=== PATIENT | female | born 1945 | race Caucasian/White ===

== ENCOUNTER 2017-06-02 11:19 | Outpatient (CLI) | payer MEDICARE ==
--- NOTE | 2017-06-02 12:40 | RAD ---
PA AND LATERAL CHEST: Indication: Fever. IMPRESSION: No acute cardiopulmonary abnormality. COMMENTS: Chronic lung changes are stable. Calcified granuloma of the right upper lobe is similar. Heart size and pulmonary vasculature is normal. There are vascular calcifications involving the aortic arch. POS: [facility]
== END 2017-06-02 11:20 | disposition home or self-care (01) ==
LOC: RAD-FRANK 11:19
PROVIDERS: ATTEND Nurse Practitioner Family
DX: R50.9 Fever, unspecified (principal)
CPT/HCPCS: 71020

== ENCOUNTER 2018-01-12 09:27 | Outpatient (CLI) | payer MEDICARE ==
--- NOTE | 2018-01-12 11:08 | RAD ---
PA AND LATERAL CHEST: History: Bronchitis. FINDINGS: Comparison made with exam of 06-10-17. The heart size is normal. The aorta is tortuous. The lungs are expanded without focal areas of consol idation, pneumothorax, or pleural effusions. There are degenerative changes in the spine. Calcified g ranuloma in the right upper lobe is redemonstrated. IMPRESSION: No radiographic evidence of acute cardiopulmonary process. POS: [facility]
== END 2018-01-12 09:28 | disposition home or self-care (01) ==
LOC: RAD-FRANK 09:27
PROVIDERS: ATTEND Nurse Practitioner Family
DX: J40 Bronchitis, not specified as acute or chronic (principal)
CPT/HCPCS: 71046

== ENCOUNTER 2018-11-03 12:56 | Outpatient (CLI) | payer MEDICARE ==
--- NOTE | 2018-11-03 13:45 | MMO ---
Bilateral MAMMO Bilat Screen [facility]. CLINICAL HISTORY: Patient is 72 years old and is seen for screening. The patient has no family history of breast cancer. The patient has no personal history of cancer. VIEWS: The views performed were: bilateral craniocaudal with tomosynthesis; bilateral mediolateral oblique; and bilateral mediolateral oblique with tomosynthesis. FILMS COMPARED: The present examination has been compared to a prior imaging study performed at [facility] on 02/13/2009. MAMMOGRAM FINDINGS: There are scattered fibroglandular densities. There are benign appearing calcifications seen in both breasts. There are no suspicious masses, calcifications or areas of architectural distortion. IMPRESSION: CALCIFICATIONS IN BOTH BREASTS ARE BENIGN. A ROUTINE FOLLOW-UP MAMMOGRAM IN 1 YEAR IS RECOMMENDED. THE RESULTS OF THIS EXAM WERE SENT TO THE PATIENT. ACR BI-RADS Category 2 - Benign finding MAMMOGRAPHY NOTE: 1. A negative mammogram report should not delay a biopsy if a dominant of clinically suspicious mass is present. 2. Approximately 10% to 15% of breast cancers are not detected by mammography. 3. Adenosis and dense breasts may obscure an underlying neoplasm.
--- NOTE | 2018-11-03 14:29 | BD ---
DEXA BONE SCAN: History: Age related osteoporosis. Lumbar Spine: BMD (g/cm2) L1 0.86 T-Score: -1.1 Z-Score: 1.0 L2 0.91 T-Score: -1.0 Z-Score: 1.3 L3 0.91 T-Score: -1.6 Z-Score: 0.9 L4 1.91 T-Score: -1.4 Z-Score: 1.1 L1-L4 0.90 T-Score: -1.3 Z-Score: 1.0 Findings are compatible with osteopenia. Femoral Neck: 0.64 T-Score: -1.9 Z-Score: 0.1 Total Femur: 0.94 T-Score: -0.1 Z-Score: 1.7 Findings compatible with osteopenia. The patient has a major osteoporotic fracture risk of 13% and hip fracture risk of 4.3% Impression: Osteopenia. The patient has a mild increased risk of osteoporotic fractures. POS: [facility]
== END 2018-11-03 12:57 | disposition home or self-care (01) ==
LOC: BICMAMMO 12:56
PROVIDERS: ATTEND Obstetrics & Gynecology
DX: Z12.31 Encounter for screening mammogram for malignant neoplasm of breast (principal); Z13.820 Encounter for screening for osteoporosis; M85.88 Other specified disorders of bone density and structure, other site; R92.1 Mammographic calcification found on diagnostic imaging of breast
CPT/HCPCS: 77063; 77067; 77080

== ENCOUNTER 2019-08-07 07:43 | Outpatient (CLI) | payer MEDICARE ==
--- NOTE | 2019-08-07 08:12 | RAD ---
TWO VIEWS CHEST: DATE: 08/07/2019. PROVIDED CLINICAL HISTORY: Cough. FINDINGS: Comparison 01/12/2018. Cardiac and mediastinal silhouette is within normal limits. Vascular calcific ation involves the aortic arch. Blunting of the left costophrenic angle is new with respect to the p rior examination, without evidence for freely layering pleural fluid on the lateral. Stable calcifie d granulomatous right suprahilar region. Question patchy airspace disease left lung base laterally. No evidence for pneumothorax. IMPRESSION: Left lateral basilar pleural-parenchymal opacity, new from prior. This may reflect airspace disease with adjacent non-freely layering pleural fluid. Followup is recommended. POS: [facility]
== END 2019-08-07 07:44 | disposition home or self-care (01) ==
LOC: RAD-FRANK 07:43
PROVIDERS: ATTEND Nurse Practitioner Family
DX: R05 Cough (principal); R91.8 Other nonspecific abnormal finding of lung field
CPT/HCPCS: 71046

== ENCOUNTER 2019-09-08 08:35 | Outpatient (CLI) | payer MEDICARE ==
--- NOTE | 2019-09-08 09:10 | RAD ---
PA AND LATERAL VIEWS CHEST: Date: 09/08/2019 HISTORY: Pleural effusion follow-up. COMPARISON: 08/07/2019. FINDINGS: The previously noted left lateral basilar pleural parenchymal opacity demonstrates interval improveme nt. The heart size is normal. The aorta is tortuous. The right lung is clear. There are degenerative changes in the spine. IMPRESSION: Interval improvement since 08/07/2019. Continued follow-up is recommended. POS: [facility]
== END 2019-09-08 08:36 | disposition home or self-care (01) ==
LOC: RAD-FRANK 08:35
PROVIDERS: ATTEND Nurse Practitioner Family
DX: J90 Pleural effusion, not elsewhere classified (principal)
CPT/HCPCS: 71046

== ENCOUNTER 2020-05-16 09:07 | Outpatient (CLI) | payer MEDICARE ==
--- NOTE | 2020-05-16 09:22 | RAD ---
XR Chest Pa Lat STANDARD HISTORY: COPD COMPARISON: 09/08/2019 FINDINGS: The heart size is normal. The aorta is tortuous. The lungs are well expanded without focal areas of consolidation, pneumothorax or pleural effusions. There are degenerative changes in the spine. IMPRESSION: No radiographic evidence of acute cardiopulmonary process.
== END 2020-05-16 09:08 | disposition home or self-care (01) ==
LOC: RAD-FRANK 09:07
PROVIDERS: ATTEND Nurse Practitioner Family
DX: J44.9 Chronic obstructive pulmonary disease, unspecified (principal)
CPT/HCPCS: 71046

== ENCOUNTER 2021-01-29 15:47 | Outpatient (CLI) | payer MEDICARE | END 2021-01-29 15:48 | disposition home or self-care (01) | LOC: RAD-FRANK 15:47 | PROVIDERS: ATTEND Nurse Practitioner Family | DX: R50.9 Fever, unspecified (principal); J84.9 Interstitial pulmonary disease, unspecified | CPT/HCPCS: 71046 ==

== ENCOUNTER 2021-02-13 11:18 | Outpatient (CLI) | payer MEDICARE | END 2021-02-13 11:19 | disposition home or self-care (01) | LOC: RAD-FRANK 11:18 | PROVIDERS: ATTEND Nurse Practitioner Family | DX: J18.9 Pneumonia, unspecified organism (principal); J98.4 Other disorders of lung | CPT/HCPCS: 71046 ==